=== PATIENT | male | born 1980 | race Caucasian/White ===

== ENCOUNTER 2016-10-17 20:19 | Emergency (ER) | payer BC ==
--- NOTE | 2016-10-18 12:40 | ER ---
ADMIT: 10/17/2016 RM/LOC: ER [facility] MR#: [id number] [facility] [id number] [place], [place] [id number] MALIKA WHITE [address] [address] Emergency Room Report SEX: M AGE: 36 : 1980 DATE: 10/17/2016 For chief complaint, history of present illness, past medical history, medications, allergies, review of systems, including physical exam, please see my T-sheet. INTERIM HISTORY: The patient is a 36-year-old, white male, comes in today, needs a note to go back to work. He has been sick yesterday. Vital signs are stable. PHYSICAL EXAMINATION: Unremarkable. He feels better today. IMPRESSION: Nausea. The patient was given a note to return back to work. ZEKE Champion / Jose Matamoros MD / larissa JOB #: [id number] CC: Jose Matamoros MD, Attending Physician UNKNOWN, Family Physician
== END 2016-10-17 20:40 | disposition home or self-care (01) ==
LOC: ER 20:19
DX: R11.2 Nausea with vomiting, unspecified (principal); Z87.891 Personal history of nicotine dependence